=== PATIENT | female | born 1990 | race Caucasian/White ===

== ENCOUNTER 2022-10-01 12:27 | Emergency (ER) | payer OTHER, SELFPAY ==
--- NOTE | 2022-10-01 12:59 | ED.SKABFB ---
HPI - Skin/Abscess/Foreign Bdy General Chief complaint: Skin/Abscess/Foreign Body Stated complaint: Cyst Time Seen by Provider: 10/01/22 13:03 Source: patient Mode of arrival: ambulatory Limitations: no limitations History of Present Illness HPI narrative: 31-year-old female with history of recurrent pilonidal abscess presents the ER with pilonidal abscess the last 4 days. No fevers or chills. Related Data Previous Rx's Medication Instructions Recorded doxycycline monohydrate 100 mg 100 mg PO BID #14 tabs 10/01/22 tablet Allergies Allergy/AdvReac Type Severity Reaction Status Date / Time amoxicillin Allergy Unknown Verified 10/01/22 12:59 Sulfa (Sulfonamide Allergy Unknown Verified 10/01/22 12:59 Antibiotics) Review of Systems Review of Systems: Yes all other systems are reviewed and are negative Constitutional: Constitutional: Reports no additional constitutional complaints, Denies body ache(s), Denies chills, Denies fever(s), Denies headache(s) and Denies weakness Eyes: Eyes: Reports no additional eye complaints and Denies change in vision ENT: Reports system reviewed and no additional complaints, except as documented, Denies dizziness, Denies headache(s), Denies nasal congestion, Denies nasal discharge and Denies neck pain Cardiovascular: Cardiovascular: Reports no additional cardiovascular complaints, Denies chest pain, Denies leg edema and Denies dyspnea Respiratory: Respiratory: Reports no additional respiratory complaints, Denies cough and Denies dyspnea Gastrointestinal: Gastrointestinal: Reports no additional gastrointestinal complaints, Denies abdominal pain, Denies diarrhea, Denies nausea and Denies vomiting Genitourinary: Genitourinary: Reports no additional female genitourinary complaints and Denies urinary incontinence Musculoskeletal: Musculoskeletal: Reports no additional musculoskeletal complaints, Denies back pain, Denies arthralgias, Denies joint swelling, Denies neck pain, Denies numbness and Denies tingling Integumentary/Breasts: Skin/Breast: Reports system reviewed and no additional complaints, except as docu, Reports swelling, Reports erythema and Denies rash Neurologic: Reports system reviewed and no additional complaints, except as documented, Denies Abnormal speech present, Denies dizziness, Denies headache(s), Denies numbness, Denies tingling and Denies weakness PMFSH Past Medical History Attestation statement: The following information was validated with the patient. Source: old records reviewed and nursing notes reviewed Social History Social History Alcohol intake: current Alcohol intake frequency: holidays/special occasions only Smoked in Last 30 Days: Yes Use of substances other than those prescribed or required for medical reasons: Yes Substance Use Type: Marijuana Advance Directives: No Advance Directives Information Provided: No Physical Exam Vital Signs: Vital Signs: Last Vital Signs Temp 98.1 F 10/01/22 13:00 Pulse 99 10/01/22 13:40 Resp 16 10/01/22 13:40 BP 139/84 10/01/22 13:40 Pulse Ox 98 10/01/22 13:40 O2 Del Method Room Air 10/01/22 13:40 BMI result Body Mass Index 28.7 Const: General: cooperative, healthy appearing, comfortable and no acute distress Orientation/consciousness: patient oriented x3 Limitations: no limitations HEENT: Head: Yes normal to inspection Ears: hearing grossly normal bilaterally General nose exam: Normal external nose present Face and sinus: Yes normal facial exam Mouth: Normal oral and palatal mucosa present Throat: Yes posterior oropharynx normal Eyes: General: appearance normal, both eyes and all related structures Pupils: Equal, round and reactive pupils present Neck: Neck: Yes normal visual inspection Chest: Chest palpation & inspection: normal inspection of the chest Resp: Effort & Inspection: normal respiratory effort Auscultation: clear to auscultation bilaterally Cardio: Rate: regular rate Rhythm: regular rhythm Peripheral pulses: Peripheral pulses 2+ throughout GI: Inspection: Yes normal to inspection Palpation (GI): Soft to palpation and nontender Auscultation: normal bowel sounds Back/Spine/Pelvis: Thoracic/Lumbar Spine: thoracic and lumbar spine normal to inspection Back/spine/pelvis image: 1. +medium abscess with pointing/fluctuance and TTP Skin: General skin exam: no rashes or lesions noted Neuro: General: patient oriented x3, no focal motor deficits and normal sensation to monofilament Cranial nerves: Yes Equal, round and reactive pupils present Cognition (Neuro): normal cognition Speech: No Abnormal speech present Gait exam (Neuro): Normal gait present Motor exam (neuro): 5/5 motor strength present throughout Extrem: General: Yes normal to inspection Course Course Course Narrative: RME: 31yo F PMHx pilonidal cysts c/o worsening pilonidal cyst x4-5 days. Denies active drainage, fever, chills Area not examined in triage Full HPI, ROS and PE to be performed by primary ED provider. Medical Decision Making Medical Decision Making [facility] Narrative: 31-year-old female with history of recurrent pilonidal abscess presents the ER with pilonidal abscess for 4 days exam is consistent pilonidal abscess see procedure note for I&D patient will be discharged home with antibiotic Differential Diagnosis Differential Diagnoses: The differential diagnosis associated with the presentation includes pilonidal abscess low concern for Day's gangrene Prescription Management I considered prescription management with: Antibiotic Antibiotic needed for pilonidal abscess Procedures Abscess I/D Site: other (pilonidal) Technique: incised with blade Sent for culture/gram staining?: No Irrigation: No Packing used?: none Discharge Plan Discharge Clinical Impression: Abscess of skin or subcutaneous tissue Patient Disposition: Home, Self-Care Instructions: Abscess (ED), Abscess Incision and Drainage (DC) Prescriptions: New doxycycline monohydrate 100 mg tablet 100 mg PO BID Qty: 14 0RF Referrals: Dawood Cano MD [Physician] - Stand Alone Forms: Work/School Release Interventions: ED Discharge Assessment Last Done: 10/01/22 13:41 Discharge Date/Time: 10/01/22 13:44
[2022-10-01 13:00] VITALS: BP 132/81; PULSE 105; RESP 16; TEMP 36.7; O2SAT 98; BMI 28.7
[2022-10-01 13:40] VITALS: BP 139/84; PULSE 99; RESP 16; O2SAT 98
--- NOTE | 2022-10-01 13:43 | PC.NURSE ---
I+D performed on pilonidal cyst. Patient tolerated procedure well, having some relief after drainage done.
== END 2022-10-01 13:44 | disposition home or self-care (01) ==
PROVIDERS: Emergency Provider Emergency Medicine Emergency Medical Services; PCP Internal Medicine
DX: L05.01 Pilonidal cyst with abscess (principal)
CPT/HCPCS: 10080; 99284

== ENCOUNTER 2024-06-01 22:08 | Emergency (ER) | payer OTHER, SELFPAY ==
[2024-06-01 22:17] VITALS: BP 105/65; PULSE 107; RESP 28; TEMP 36.4; O2SAT 97; BMI 33.8
[2024-06-01 22:40] VITALS: PULSE 105; RESP 26; O2SAT 99
[2024-06-01] MEDS: Albuterol Sulfate 90 MCG 8 GM INHALER 12 PUFF INHALE (22:40)
--- OUTSIDE RECORDS SUMMARY | 2024-06-02 02:05 | XMS_ITS | Clinical Summary ---
Author Organization [facility] Address [address] [place] [address] Care Team Providers Care Ore Crusher Name Role Phone Sondra Diaz MD Primary Care Provider [phone] Allergies Active Allergy Reactions Criticality Noted Date Comments Amoxicillin 10/02/2019 Sulfa Antibiotics 10/02/2019 Medications Medication Sig Dispensed Refills Start Date End Date Status omeprazole (PriLOSEC) 20 MG capsule 0 02/18/2022 Active Active Problems No known active problems Immunizations Name Administration Dates Next Due Adacel (Tdap) 10/02/2019 Social History Tobacco Use Types Packs/Day Years Used Date Smoking Tobacco: Every Day Cigarettes 0.5 Smokeless Tobacco: Never Tobacco Cessation:Ready to Q uit: No; Counseling Given: Not Answered Alcohol Use Standard Drinks/Week Comments Not Currently 0 (1 standard drink = 0.6 oz pur e alcohol) Sex and Gender Information Value Date Recorded Sex Assigned at Female 10/02/2019 9:14 PM EDT Gender Identity Female 02/22/2022 1:47 PM EST Sexual Orientation Not on file Job Start Date Occupation Industry Not on file Not on file Not on file Last Filed Vital Signs Vital Sign Reading Time Taken Comments Blood Pressure 152/119 02/22/2022 1:23 PM EST Pulse 98 02/22/2022 1:23 PM EST Temperature 37 ??C (98.6 ??F) 02/22/2022 1:23 PM EST Respiratory Rate 20 02/22/2022 1:23 PM EST Oxygen Saturation 97% 02/22/2022 1:23 PM EST Inhaled Oxygen Concentration - - Weight 88.5 kg (195 lb) 02/22/2022 1:23 PM EST Height 157.5 cm (5' 2 ) 02/22/2022 1:23 PM EST Body Mass Index 35.67 02/22/2022 1:23 PM EST Plan of Treatment Not on file Care Teams Ore Crusher Relationship Specialty Start Date End Date Sondra Diaz MD PCP - General Internal Medicine 10/02/19
--- OUTSIDE RECORDS SUMMARY | 2024-06-02 02:06 | XMS_ITS | Clinical Summary ---
Author Organization [facility] Address [address] [place] [address] Care Team Providers Care Telesales Manager Name Role Phone Sondra Diaz MD Primary Care Provider [phone] Allergies Active Allergy Reactions Criticality Noted Date Comments Amoxicillin Hives 02/22/2022 Sulfa (Sulfonamide Antibiotics) 05/30/2005 Other Reaction(s): Hives/Urticaria Medications omeprazole (PriLOSEC) [address] capsule Take 1 capsule (20 mg total) by mouth 1 (one) time each day. 01/24/2022 Active Active Problems Problem Noted Date Diagnosed Date Vitiligo 03/22/2024 Displacement of lumbar inter vertebral disc without myelopathy 08/08/2010 Radiculitis, lumbosacral 08/08/2010 Asthma 03/03/2006 Overview (03/22/2024): URI, allergies, no hosp As of 11-28-09: no alb this year As of 11-29-10: used it once in the winter Allergic rhinitis 10/03/2005 Overview (03/22/2024): year round Immunizations Name Administration Dates Next Due DTP 09/25/1993, 0,05/01/1989,02/06,1988 [id number] (Pentacel) 2mo to less than 5yo 10/12/1989 Hepatitis B Pediatric (Enger ix B; Recombivax HB) to less than 20 yo 07/13/1999,12/09/1997,11/07/1997 Influenza trivalent, with pr eservative (Fluzone; Afluria) 6mo and older 01/30/2005 MMR, measles mumps and rubel la Live (Priorix; M-M-R II) 12mo and older 11/07/1997,01/21/1990 Meningococcal MCV4P 10/09/2006 OPV 09/25/1993, 0,02/06/1989,12/06 PPD Test 07/26/2009,10/09/2006,01/11/2005 Td Tetanus diptheria (Tdvax) 7yo and older 11/21/1999 Tdap Tetanus diptheria acell ular pertussis (Boostrix; Adacel) 7yo and older 10/02/2019,10/09/2006 Varicella live (Varivax) 12m o and older 09/05/1993 Surgical History Surgery Date Site/Laterality Comments OTHER SURGICAL HISTORY PROCEDURE: DENIES PREVIOUS SURGERY BACK SURGERY PROCEDURE:BACK SURGERY Medical History Medical History Date Comments Allergic rhinitis, cause unspecified DX:Allergic rhinitis, cause unspecified; COMMENT: year round; improved Pure hypercholesterolemia DX:Pur e hypercholesterolemia Infectious mononucleosis DX:Infe ctious mononucleosis; COMMENT: positive EBV titer for past infection Backache, unspecified DX:Backach e, unspecified; COMMENT: disc disease- L4-5 disc herniation and L5 S1 no herniation Varicella without mention of complication DX:Varicella without mention of complication; COMMENT: 08/1993 Vitiligo DX:Vitiligo Elevated blood pressure read ing without diagnosis of hypertension DX:Elevated blood pr essure reading without diagnosis of hypertension; COMMENT: saw Dr. Hutson; normal renal US and cardiac echo Pain in limb DX:Pain in limb; COMMENT: severe heel pain ? Sever's disease- casted- ortho Dr. 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 Asthma DX:Asthma Family History Medical History Relation Name Comments Other: renal stones Mother Heart attack Paternal Grandfather in mid 60's Relation Name Status Comments Mother Alive tristan Paternal Grandfather Social History Tobacco Use Types Packs/Day Years Used Date Smoking Tobacco: Every Day Cigarettes 0.3 10.1 Started: 05/01/2004; Last attempted to quit: 06/24/2014 Smokeless Tobacco: Never Alcohol Use Standard Drinks/Week Comments Not Currently 0 (1 standard drink = 0.6 oz pur e alcohol) Comments Unknown Sex and Gender Information Value Date Recorded Sex Assigned at Not on file Legal Sex Female 6:24 PM EST Gender Identity Not on file Sexual Orientation Not on file Obstetrics History Last Filed Vital Signs Vital Sign Reading Time Taken Comments Blood Pressure 120/78 01/24/2022 1:45 PM EDT Pulse 117 01/24/2022 1:45 PM EDT Temperature - - Respiratory Rate - - Oxygen Saturation - - Inhaled Oxygen Concentration - - Weight 84.8 kg (187 lb) 01/24/2022 1:45 PM EDT Height 157.5 cm (5' 2 ) 01/24/2022 1:45 PM EDT Body Mass Index 34.2 01/24/2022 1:45 PM EDT Plan of Treatment Health Maintenance Due Date Last Done Comments Pneumococcal Vaccine: Pediatrics (0 to 5 Years) and At-Risk Patients (6 to 64 Years) (1 of 2 - PCV) 10/06/2007 Cervical Cancer Screening: Pap Smear 2009 Depression Screening 03/02/2022 HIV Screening 03/02/2022 Hepatitis C Screening 03/02/2022 Social Influencers of Health Screening 03/02/2022 COVID-19 Vaccine ( season) 2023 Influenza Vaccine (#1) 2023 01/30/2005 DTaP,Tdap,and Td Vaccines (9 - Td or Tdap) 10/01/2029 10/02/2019, 10/09/2006, 11/21/1999, Additional history exists HIB Vaccines Aged Out 10/12/1989 No longer eligi ble based on patient's age to complete this topic Varicella Vaccines Aged Out 09/05/1993 No longer eligible based on patient's age to complete this topic IPV Vaccines Completed 09/25/1993, 03/02, 10/12/1989, Additional history exists MMR Vaccines Completed 11/07/1997, 01/21/1990 Hepatitis B Vaccines Completed 07/13/1999, 12/09/1997, 11/07/1997 Meningococcal ACWY Vaccine Completed 10/09/2006 HPV Vaccines Aged Out No longer eligi ble based on patient's age to complete this topic Hepatitis A Vaccines Aged Out No long er eligible based on patient's age to complete this topic Meningococcal B Vacine Aged Out No lo nger eligible based on patient's age to complete this topic RSV Immunization Patients Under 20 months Aged Out No longer eligible based on patient's age to complete this topic Care Teams Telesales Manager Relationship Specialty Start Date End Date Sondra Diaz MD [address] [place] [id number] PCP - General Internal Medicine 04/01/11
--- OUTSIDE RECORDS SUMMARY | 2024-06-02 02:06 | XMS_ITS | Data Portability ---
Author Organization [facility], [address] Address [address] [place] [address] Assessment No assessment recorded. Plan of Treatment Reminders Order Date Submit Date Provider Last Modified By Organization Details Last Modified Time Details Appointments None recorded. Lab None recorded. Referral None recorded. Procedures None recorded. Surgeries None recorded. Imaging XR, chest, 2 view 2023 [email or web address] [facility], [address] [place], [address], 4 19:33:05 Medication Orders prednisone 20 mg tablet 2023 024 [facility] #[id number], [address] [place], [address], 4 18:23:13 Florastor 250 mg capsule 2023 024 [facility], [address] [place], [address], 4 18:24:41 doxycycline hyclate 100 mg capsule 2023 024 [facility], [address] [place], [address], 4 18:24:41 benzonatate 200 mg capsule 2023 024 [facility], [address] [place], [address], 4 18:23:13 loratadine 10 mg tablet 2023 [facility], [address] [place], [address], 18:23:13 albuterol sulfate HFA 90 mcg/actuati on aerosol inhaler 2023 024 [facility], [address] [place], [address], 18:23:13 Patient TargetsNo targets recorded. Patient Instructions Encounter Date Encounter Id Patient Instructions Last Modified By Organization Details Last Modified Time 07/24/2023 [id number] peak flow* [email or web address] Not available 06/30 19:30:18 acute bronchitis education [email or web address] Not available 07/24/2023 18:23:09 bronchitis: care instructions [email or web address] Not available 07/24/2023 18:23:09 Home Care:: Take your asthma medicines exactly as prescribed. Talk to your doctor right away if you have any questions about how to take them. Use your quick-relief medicine when you have symptoms of an asthma attack. Some people need to use quick-relief medicine before they exercise to prevent asthma symptoms. Albuterol is a quick-relief medicine that is often used. In some cases, a certain type of controller inhaler is used as a quick-relief medicine. Ask your doctor what to use for quick relief. Take your controller medicine. If you have symptoms often, you will likely need to take it every day. Controller medicine usually includes an inhaled corticosteroid. The goal is to prevent problems before they occur. If your doctor prescribed corticosteroid pills to use during an attack, take them exactly as prescribed. It may take hours for the pills to work, but they may make the episode shorter and help you breathe better. Keep your quick-relief medicine with you at all times. Talk to your doctor before using other medicines. Some medicines, such as aspirin, can cause asthma attacks in some people. If you have a peak flow meter, use it to check how well you are breathing. This can help you predict when an asthma attack is going to occur. Then you can take medicine to prevent the asthma attack or make it less severe. Do not smoke or allow others to smoke around you. Avoid smoky places. Smoking makes asthma worse. If you need help quitting, talk to your doctor about stop-smoking programs and medicines. These can increase your chances of quitting for good. Learn what triggers an asthma attack for you, and avoid the triggers when you can. Common triggers include colds, smoke, air pollution, dust, pollen, mold, pets, cockroaches, stress, and cold air. Avoid colds and the flu. Talk to your doctor about getting a pneumococcal vaccine shot. If you have had one before, ask your doctor if you need a second dose. Get a flu vaccine every fall. If you must be around people with colds or the flu, wash your hands often. Seek Immediate Medical Attention if:: You have severe trouble breathing. Your symptoms do not get better after you have followed your asthma action plan. You have new or worse trouble breathing. Your coughing and wheezing get worse. You cough up dark brown or bloody mucus (sputum). You have a new or higher fever. Watch closely for changes in your health, and be sure to contact your doctor if: You need to use quick-relief medicine on more than 2 days a week within a month (unless it is just for exercise). You cough more deeply or more often, especially if you notice [email or web address] Not available 07/24/2023 18:24:10 Assessment: Mild asthma exacerbation and underlying sinusitis with no evidence of hypoxia, significant increased work of breathing, bacterial infection, dehydration. No prior history of hospitalizations or intubations. Patient reassessed with resolution of symptoms after beta agonist nebulizer treatments here. Plan: Counseled to continue inhaler, steroids, and follow-up with primary care physician. [email or web address] Not available 07/29/2023 09:20:15 Reason for Referral None Reported. Results Created Date Observation Date Name Description Value Unit Range Abnormal Flag Note LastModifiedBy Organization Detail LastModifiedTime 07/24/1907/24/2023 peak flow* Pre (L/min) 200 Not Available [facility] [address] [place], [address], 07/24/2023 18:52:37 07/24/1907/24/2023 peak flow* Post (L/min) 250 Not Available [facility] [address] [place], [address], 07/24/2023 18:52:37 07/24/19 24 07/24/2023 peak flow* Pulse 104 Not Available [id number] [place] [address] [address] [place], [address], 07/24/2023 18:52:37 07/24/19 24 07/24/2023 peak flow* Oxygen Saturation 98 Not Available [facility] [address] [place], [address], 07/24/2023 18:52:37 07/24/19 24 07/24/2023 XR, chest , 2 view No observ ation record ed. [email or web address] [facility] [address] [place], [address], 07/24/2023 19:35:39 Result Notes None recorded. Problems Name Problem SNOMED Code Status Onset Date Resolution Date Notes Provider Name and Address Organization Details Recorded Time Asthma 228368727 Active 024 [facility] 07/24/2023 17:50:29 Problem Notes None recorded. Procedures Surgical History None recorded. Imaging Results Imaging Date Name Status LastModified by Organiz ation Details LastModified Time 07/24/2023 XR, chest, 2 view completed [email or web address] [facility] [address] [place], [address], 07/24/2023 19:35:39 Procedure Notes None recorded. Medical Equipment None Reported. Allergies Allergen ID Allergen Name Allergen Category Reaction Reaction Severity Criticality Documentation Date Start Date Code Code System Note Provider Name and Address Organization Details Recorded Time 871341 amoxicill in medicatio n Not available Not available Not available 07/24/2023 723 [facility] 17:50:10 Medications Name Sig Start Date Stop Date Status Note LastModified by Organization Details LastModified Time doxycycline hyclate 100 mg capsule Take 1 capsule twice a day by oral route for 7 days. 2023 active Not Available Not Available Not Avai lable benzonatate 200 mg capsule Take 1 capsule 3 times a day by oral route. 2023 active Not Available Not Available Not Avai lable prednisone 20 mg tablet Take 3 tablets every day by oral route for 5 days. 2023 active Not Available Not Available Not Avai lable albuterol sulfate HFA 90 mcg/actuatio n aerosol inhaler Inhale 2 puffs every 4 hours by inhalation route. 2023 active Not Available Not Available Not Avai lable loratadine 10 mg tablet Take 1 tablet every day by oral route for 14 days. 2023 active Not Available Not Available Not Avai lable Florastor 250 mg capsule Take 1 capsule twice a day by oral route for 14 days. 2023 active Not Available Not Available Not Avai lable Vitals Date Recorded Body height Body mass index (BMI) Body weight Heart rate Respiratory rate Body temperature Oxygen saturation Oxygen saturation in Arterial blood by Pulse oximetry Systolic blood pressure Diastolic blood pressure Provider Name and Address Organization Details Last Updated DateTime 157.48 cm 31.5 kg/m2 57620.8 9 g 99 /min 20 /min 98 [degF] 97 % 97 % 120 mm[Hg] 76 mm[Hg] Emilee Johnson [facility] 17:53:36 Social History Question Answer Notes LastModified by [employer] ion Details LastModified Time Tobacco Smoking Status Current Every Day Smoker [facility] 07/24/2023 17:51:24 What Is Your Level Of Alcohol Consumption? Occasional Information not available 07/24/2023 Have You Had A Flu Shot This Season? No Information not available 07/24/2023 If No, Would You Like A Flu Shot Today? No Information not available 07/24/2023 Have You Had Direct Contact, Or Contact During Intimacy, With Monkeypox Rash, Scabs, Or Body Fluids From A Person With Monkeypox? No Information not available 07/24/2023 What Was The Date Of Your Most Recent Tobacco Screening? 07/24/2023 Information not available 07/24/2023 How Much Tobacco Do You Smoke? 1 PPD Information not available 07/24/2023 Have You Recently Traveled Abroad? No Information not available 07/24/2023 Do You Or Have You Ever Used Any Other Forms Of Tobacco Or Nicotine? No Information not available 07/24/2023 Sex: Unknown Functional Status None recorded. Mental Status None recorded. Family History Relationship Description Onset Age of this Age Resolved Age Notes LastModified by Organization Details LastModified Time Father No current problems or disability Not available 07/23 17:50:32 Mother No current problems or disability Not available 07/23 17:50:32 Medical History No medical history recorded. Gynecological History Statement/Question Response Date of LMP 07/24/2023 Obstetrics History GPAL:G 0 P 0 0 0 0 Past Encounters Encounter ID Performer Location Encounter Start Date Encounter Closed Date Diagnosis/Indication Diagnosis SNOMED-CT Code Diagnosis ICD10 Code Diagnosis Note [id number] [facility] [address] [place] [address] 04/01/2019 18:52:19 04/01/2019 20:01:21 [id number] [address] [address] [place] [address] 07/03/2016 14:37:50 07/03/2016 15:15:13 [id number] [facility] [address] [address] 07/24/2023 17:42:00 07/24/2023 19:33:05 Exacerbation of intermittent asthma 962475731 J45.21 Acute bronchitis 5359868 2 J20.9 Acute sinusitis 08497231 J01.90 Health Concerns Section Related Observation LastModified by Organization Detai ls LastModified Time None Recorded Concern Status LastModified by Organization Details LastModified Time None Recorded Advance Directives Directive None Recorded Payers Encounter Date Sequence Insurance Name Policy Number Policy Nuñez Covered Member ID Nuñez Member ID Guarantor Name 07/03/[address] [place] [place] [address] [id number] Christoph Carmichael [id number] Christoph Carmichael 04/01/2019 1 [facility] [id number] Christoph Carmichael [id number] Christoph Baumanelin 07/24/2023 1 [employer] [facility] [id number] Christoph Amol [id number] Christoph Amol Notes Date Note Type Note Provider Name and Address Organization Details Recorded Time 07/24/2023 text/html CoughReported bypatient.Notes:32 y.o female with h.o asthma presents with cough, wheezing that is progressively getting worse and sinus congestion. [place] 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 Since then and being exposed to dust, her sx's have gotten worse. Pt admits to cough and wheezing. Pt is sitting upright and speaking full sentences. [facility] [address] [place], [address], [place] [facility] 07/29/2023 09:21:06 OBGyn Episode No OBEpisode recorded.
== END 2024-06-02 02:08 | disposition left against medical advice (07) ==
LOC: HO.ED 06-02 02:03
PROVIDERS: Emergency Provider Emergency Medicine
DX: R06.02 Shortness of breath (principal)
CPT/HCPCS: 94640; 99283; 99284